=== PATIENT | male | born 1940 | race Two or more races ===

== ENCOUNTER 2022-02-20 12:41 | Outpatient (CLI) | payer OTHER | END 2022-02-20 12:42 | disposition home or self-care (01) | LOC: LAB 12:41 | PROVIDERS: ATTEND Urology | DX: R97.20 Elevated prostate specific antigen [PSA] (principal) ==

== ENCOUNTER 2022-03-14 07:49 | Outpatient (CLI) | payer OTHER | END 2022-03-14 07:52 | disposition home or self-care (01) | LOC: SONOGRAMA 07:49 | PROVIDERS: ATTEND Urology | DX: R97.20 Elevated prostate specific antigen [PSA] (principal) ==